=== PATIENT | male | born 1990 | race Hispanic/Latino ===

== ENCOUNTER 2024-02-22 20:03 | Emergency (ER) | payer SELFPAY ==
[~2024-02-22] VITALS: Ht 162.6 cm; Wt 80.0 kg
[2024-02-22] VITALS (12 sets, daily range): BP systolic 115–143; BP diastolic 70–87
[2024-02-22] MEDS ORDERED: TAMSULOSIN HCL 0.4 MG CAP PO STA (20:16)
[2024-02-22] MEDS ORDERED: SODIUM CHLORIDE 0.9% 1,000 ML IV STA (20:16)
[2024-02-22] MEDS ORDERED: PROMETHAZINE HCL 25 MG/ML AMP IV ONE (20:20)
[2024-02-22] MEDS ORDERED: KETOROLAC TROMETHAMINE 30 MG/ML SDV IV ONE (20:20)
[2024-02-22 20:36] LABS: BASO% 0.5 % (0-3); EOS% 1.6 % (0-8); HEMATOCRIT 40.6 % (39.0-50.0); HEMOGLOBIN 14.2 g/dl (14.0-18.0); IMMATURE GRANULOCYTES 0.1 % (0.0-5.0); LYMPH% 40.2 % (15-41); MEAN CELL VOLUME 89.6 fL CALC (80.0-100.0); MEAN CORPUSCULAR HGB 31.3 pG CALC (26.0-32.0); MONO% 9.3 % (2-13); NEUT# 4.98 thou/uL (1.82-7.42); NEUT% 48.3 % (42-76); RED BLOOD COUNT 4.53 mill/uL (4.70-6.10); RED CELL DISTRI WIDTH 12.2 % (11.5-15.5)
[2024-02-22 20:36] LABS: URINE BILIRUBIN - DIPSTICK Negative (NEGATIVE); URINE BLOOD DIPSTICK Moderate (NEGATIVE); URINE GLUCOSE - DIPSTICK Negative (NEGATIVE); URINE KETONE Negative (NEGATIVE); URINE LEUK ESTERASE Negative (NEGATIVE); URINE NITRITE - DIPSTICK Negative (Negative); URINE PH 5.5 (4.5-8.0); URINE PROTEIN - DIPSTICK Negative (NEG-TRACE); URINE SPECIFIC GRAVITY >=1.030; URINE UROBILINOGEN - DIPSTICK 0.2 E.U./dL (0.2)
[2024-02-22 20:37] LABS: URINE COLOR Yellow
[2024-02-22 20:46] LABS: URINE WBC 0-2 WBC/hpf (0-5)
[2024-02-22 20:47] LABS: URINE MUCUS FEW hpf (NONE-FEW)
[2024-02-22 20:48] LABS: URINE BACTERIA RARE hpf
[2024-02-22 20:50] LABS: ALBUMIN 4.6 g/dL (3.2-5.0); BILIRUBIN, TOTAL 0.5 mg/dL (0.2-1.3); CREATININE 1.2 mg/dL (0.7-1.3); POTASSIUM 3.4 mmol/l (3.5-5.1)
[2024-02-22] MEDS ORDERED: TORADOL PO (23:13)
[2024-02-22] MEDS ORDERED: PROMETHAZINE HY25 M1 PO (23:13)
== END 2024-02-23 | disposition home or self-care (01) | DRG 392 ==
LOC: ED 20:03
PROVIDERS: Family Medicine
DX: R10.32 Left lower quadrant pain (principal)
CPT/HCPCS: Q9967